=== PATIENT | male | born 1975 | race Caucasian/White ===

== ENCOUNTER 2024-02-05 06:24 | Day surgery (SDC) | payer OTHER ==
[~2024-02-05] VITALS: Ht 188 cm; Wt 97.5 kg
[2024-02-05] MEDS ORDERED: SIMETHICONE 40 MG/0.6 ML ML ONE (07:47)
[2024-02-05] MEDS ORDERED: MEPERIDINE 100 MG INJ. 100 MG/ML VIAL ONE ×2 (07:48→08:35)
[2024-02-05] MEDS ORDERED: MIDAZOLAM HCL 5 MG/5 ML VIAL ONE ×2 (07:48→08:35)
[2024-02-05 10:44] VITALS: TEMP 98.1; O2SAT 98
[2024-02-05 17:13] VITALS: BP_SYST 119; PULSE 83; RESP 18
== END 2024-02-05 09:22 | disposition home or self-care (01) ==
LOC: SDS 06:24 → SMU 06:25 → SDS 09:22
PROVIDERS: ATTEND Internal Medicine
DX: R10.32 Left lower quadrant pain (principal); D12.0 Benign neoplasm of cecum; D12.3 Benign neoplasm of transverse colon; D12.2 Benign neoplasm of ascending colon; E78.5 Hyperlipidemia, unspecified; K64.8 Other hemorrhoids; Z79.899 Other long term (current) drug therapy
CPT/HCPCS: 45380; 45385; 88305; 99152; 99153; G0378; J2250; J2175